=== PATIENT | male | born 1965 | race African-American/Black ===

== ENCOUNTER 2018-09-26 19:06 | Emergency (ER) | payer MEDICAID ==
[~2018-09-26] VITALS: Ht 175.3 cm; Wt 80.0 kg
[2018-09-26] MEDS ORDERED: SODIUM CHLORIDE 0.9% 1,000 ML IV ONE (19:37)
[2018-09-26] MEDS ORDERED: ONDANSETRON HCL 4MG/2ML INJ IV STA (19:37)
[2018-09-26] MEDS ORDERED: MORPHINE SULFATE 4 MG/ML CPJ (NOT FOR IM USE) IV STA (19:37)
[2018-09-26] MEDS ORDERED: LIDOCAINE HCL/EPINEPHRINE 1%-EPI 1:100,000 20 ML VIAL INFIL ONE (19:45)
[2018-09-26] MEDS ORDERED: CLINDAMYCIN 600 MG in DEXTROSE 5% WATER 50 ML IV ONE (19:45)
[2018-09-26] MEDS ORDERED: TETANUS, DIPHTHERIA, PERTUSSIS VAC/PF 0.5ML (>7YR OLD) IM ONE (19:45)
[2018-09-26] MEDS ORDERED: CEFAZOLIN 1000MG PREMIX 50 ML IV ONE (19:45)
[2018-09-26] MEDS ORDERED: CLINDAMYCIN 600MG PREMIX 50 ML IV STA (20:19)
[2018-09-26 20:20] LABS: CHLORIDE 103 mEq/L (98-107)
[2018-09-26 20:24] LABS: BASOPHILS % 1.4 % (0.0-2.0); EOSINOPHILS % 0.3 % (0.0-5.0); HEMATOCRIT. 38.4 % (42.0-52.0); HEMOGLOBIN. 13.1 g/dL (14.0-18.0); LYMPHOCYTES % 33.5 % (20.0-50.0); MEAN CORPUSCULAR HEMOGLOBIN 29.3 pg (28.0-32.0); MEAN CORPUSCULAR VOLUME 85.9 fL (80.0-94.0); MEAN PLATELET VOLUME 9.1 fl (7.4-10.4); MONOCYTES % 11.6 % (2.0-8.0); NEUTROPHILS % 53.2 % (40.0-76.0); PLATELET 223 x1000/uL (130-400); RED BLOOD CELL COUNT 4.48 mill/uL (4.7-6.1); RED CELL DISTRIBUTION WIDTH 19.3 % (11.6-14.6)
[2018-09-27 06:35] VITALS: BP 133/66
== END 2018-09-27 06:35 | disposition home or self-care (01) ==
LOC: ER 19:06
DX: S01.511A Laceration without foreign body of lip, initial encounter (principal); S09.8XXA Other specified injuries of head, initial encounter; Y04.2XXA Assault by strike against or bumped into by another person, initial encounter; Y93.89 Activity, other specified; Y92.89 Other specified places as the place of occurrence of the external cause; Z23 Encounter for immunization
CPT/HCPCS: 12013; 36415; 70450; 70486; 80048; 85025; 90471; 90715; 96365; 96367; 96375; 99284; J0690; J2270; J2405; J3490; J7030; Z7610; J7060

== ENCOUNTER 2018-09-30 10:20 | Emergency (ER) | payer MEDICAID ==
[~2018-09-30] VITALS: Ht 172.7 cm; Wt 62.6 kg
[2018-09-30 11:19] VITALS: BP 120/73
== END 2018-09-30 11:34 | disposition home or self-care (01) ==
LOC: ER 10:20
DX: Z48.00 Encounter for change or removal of nonsurgical wound dressing (principal)
CPT/HCPCS: 99281

== ENCOUNTER 2018-10-04 11:58 | Emergency (ER) | payer MEDICAID ==
[~2018-10-04] VITALS: Ht 172.7 cm; Wt 64.0 kg
[2018-10-04 15:10] VITALS: BP 118/67
== END 2018-10-04 15:15 | disposition home or self-care (01) ==
LOC: ER 11:58
DX: Z48.02 Encounter for removal of sutures (principal)
CPT/HCPCS: 99282; Z7610

== ENCOUNTER 2018-10-07 08:51 | Emergency (ER) | payer MEDICAID ==
[~2018-10-07] VITALS: Ht 160 cm; Wt 61.5 kg
[2018-10-07 09:07] VITALS: BP 111/74
[2018-10-07] MEDS ORDERED: BACITRACIN ZINC OINT UDPKT TOP ONE (12:00)
[2018-10-07] MEDS ORDERED: IBUPROFEN 400MG TABLET PO ONE (12:00)
== END 2018-10-07 12:21 | disposition home or self-care (01) ==
LOC: ER 08:51
DX: Z48.02 Encounter for removal of sutures (principal)
CPT/HCPCS: 99282; Z7610